=== PATIENT | male | born 1975 | race Hispanic/Latino ===

== ENCOUNTER 2025-02-17 17:44 | Emergency (ER) | payer BC ==
[~2025-02-17] VITALS: Ht 162.6 cm; Wt 99.8 kg
[~2025-02-17 17:44] MED LIST: CYCL-309 PO; IBUP-2077 PO; OMEP40CA21 PO; PRED20TA3 PO
[2025-02-17] MEDS ORDERED: 0.9%NACL 1000ML 1,000 ML IV STA (17:53)
[2025-02-17 18:16] LABS: IMMATURE GRANULOCYTE ABSOLUTE 0.02 K/uL (0-1); NUCLEATED RED BLOOD CELLS 0.0 % (0.0-0.19); PLATELET COUNT (AUTO) 250 K/uL (130-400); RED BLOOD CELL COUNT(AUTO) 5.51 MIL/uL (4.50-6.20); RED CELL DISTRIBUTION WIDTH 12.6 % (11.0-15.5); WHITE BLOOD COUNT (AUTO) 7.0 K/uL (4.8-10.8)
[2025-02-17] MEDS: [UNRECOGNIZED DRUG - OTHER] IV ONE (18:26)
[2025-02-17 18:27] LABS: CREATININE 0.9 mg/dL (0.5-1.3); GLOMERULAR FILTR. RATE CALC 105.0 mL/min (>90); GLUCOSE,RANDOM 309.0 mg/dL (70-105); SODIUM SERUM 136.0 mmol/L (136-145); UREA NITROGEN, BLOOD 12.0 mg/dL (7-18)
--- NOTE | 2025-02-17 18:35 | HMCIMG ---
EXAM: CR Chest, 1 View. CLINICAL HISTORY: cough COMPARISON: None provided. FINDINGS: LUNGS: The lungs show no infiltrate or other acute finding. PLEURAL SPACES: No pleural effusion or pneumothorax. MEDIASTINUM: Cardiac size and mediastinal contours within normal limits. BONES: No aggressive appearing osseous lesion seen. IMPRESSION: No acute cardiopulmonary pathology is evident. /[place]
[2025-02-17 18:36] LABS: CREATINE KINASE, TOTAL 97.0 U/L (21-232)
[2025-02-17 18:48] LABS: SARS-CoV-2, RNA, NAAT NEGATIVE SARS CoV-2 (NEGATIVE)
[2025-02-17 18:54] LABS: INFLUENZA TYPE A Negative For Type A (NEGATIVE); INFLUENZA TYPE B Negative For Type B (NEGATIVE)
[2025-02-17 20:05] LABS: ASPARTATE AMINOTRANSFERASE 42.0 U/L (10-37); TOTAL PROTEIN, SERUM 8.9 g/dL (6.0-8.3)
[2025-02-17 21:27] LABS: APPEARANCE,URINE CLEAR (CLEAR); GLUCOSE, URINE (UA) 500 mg/dL (NEGATIVE); LEUKOCYTE ESTERASE ,URINE NEGATIVE Leu/uL (NEGATIVE); NITRATE,URINE NEGATIVE (NEGATIVE); OCCULT BLOOD,URINE NEGATIVE (NEGATIVE)
[2025-02-17 21:28] LABS: ADD UA MICROSCOPIC YES
[2025-02-17 21:38] LABS: AMPHET/METH SCREEN,URINE NEGATIVE (NEGATIVE); BARBITURATE SCREEN, URINE NEGATIVE (NEGATIVE); CANNABINOID SCREEN,URINE POSITIVE (NEGATIVE); COCAINE SCREEN,URINE NEGATIVE (NEGATIVE)
--- NOTE | 2025-02-17 21:49 | ERN ---
ED Note History of Present Illness Stated Complaint: CHEST PAIN, N/V Chief Complaint: Chest Pain Time Seen by MD: 17:52 Time Seen by Midlevel: 17:56 Dictation: 49-year-old male coming in for generalized body weakness and generalized body aches and pains onset Monday. Patient states he had two episodes of vomit today. Patient admits to working out in the sun daily. Denies having any medical or surgical problems. Allergies: Coded Allergies: No Known Allergies (Unverified Allergy, Unknown, 11/18/24) Home Meds Active Scripts Omeprazole (Omeprazole) 40 Mg Capsule.dr, 1 CAP PO DAILY for 30 Days, #30 CAP 0 Refills Prov:AGUS MORAN NP 11/18/24 Prednisone (Prednisone) 20 Mg Tablet, 1 TAB PO AD for 6 Days, #14 TAB 0 Refills TAKE 1 TAB BY MOUTH THREE TIMES PER DAY X3 DAYS, THEN TAKE 1 TAB BY MOUTH TWICE A DAY X2 DAYS, THEN TAKE 1 TAB BY MOUTH ONCE A DAY X1 DAY. Prov:AGUS MORAN NP 11/18/24 Ibuprofen (Ibuprofen 800 mg Tab) 800 Mg Tab, 800 MG PO Q8H PRN for fever or pain, #30 TAB 0 Refills Prov:AGUS MORAN NP 11/18/24 Cyclobenzaprine HCl (Cyclobenzaprine HCl) 10 Mg Tablet, 1 TAB PO TID for muscle spasms for 10 Days, #30 TAB 0 Refills Prov:AGUS MORAN NP 11/18/24 Past Medical History Past Medical History: No Pertinent History Surgical History: Appendectomy Surgical History Other: KNEE Review of System Dictation Constitutional: Generalized body aches and pains Eyes: Negative for injury, pain,redness, and discharge ENT: Negative for injury,pain or swelling Cardiovascular: Negative for chest pain, palpitations, and edema Respiratory: Negative for shortness of breath, cough, and wheezing, Abdomen/GI: Negative for abdominal pain, nausea, vomiting, diarrhea, and constipation Back: Negative for injury and pain : Negative for injury, bleeding and discharge MS/Extremity: Negative for injury and deformity Skin: Negative for rash, and discoloration Neuro: Negative for headache, weakness, numbness, tingling, and seizure Psych: Negative for suicide ideation, homicidal ideation, and hallucinations Review of Systems: was completed Initial Vital Sign VS Vital Signs Date Time Temp Pulse Resp B/P (MAP) Pulse Ox O2 Delivery O2 Flow Rate FiO2 02/17/25 17:46 101.8 96 16 123/84 97 Room Air 0 02/17/25 18:00 21 Physical Exam Dictation General: awake, alert, NAD Head/Face: Normocephalic, atraumatic Eyes: PERRL, EOMI, vision at baseline ENT: oral cavity clear, TMs clear, no signs of infection Neck: Trachea midline, supple, no nuchal rigidity Cardiovascular: RRR, normal S1/S2, No MRGs, no JVD Respiratory: CTAB, no respiratory distress, No rales or wheezes Abdomen: Soft, non-tender, non-distended, normal bowel sounds, no guarding or rebound. Skin: Warm, dry, normal turgor, no rash MS/Extremity: Pulses equal, no cyanosis, neurovascular intact, FROM Neuro: COAx4, GCS 15, strength 5/5, CN 2-12 intact, normal cerebellar exam, normal gait, Psych: Normal behavior, mood, and affect normal Results (Laboratory/Radiology) Laboratory/Radiology Laboratory Tests Test 02/17/25 17:50 02/17/25 18:24 02/17/25 21:15 02/17/25 21:34 White Blood Count 7.0 K/uL (4.8-10.8) Red Blood Count 5.51 MIL/uL (4.50-6.20) Hemoglobin 16.8 g/dL (14.0-18.0) Hematocrit 48.4 % (42-54) Mean Corpuscular Volume 87.8 fL (79-99) Mean Corpuscular Hemoglobin 30.5 pg (27.0-33.0) Mean Corpuscular Hemoglobin Concent 34.7 g/dL (32.0-36.0) Red Cell Distribution Width 12.6 % (11.0-15.5) Platelet Count 250 K/uL (130-400) Mean Platelet Volume 10.6 fL (7.5-10.5) H Immature Granulocyte % (Auto) 0.3 % (0-1) Neutrophils (%) (Auto) 58.1 % (40.0-77.0) Lymphocytes (%) (Auto) 28.6 % (21.0-51.0) Monocytes (%) (Auto) 10.9 % (3.0-13.0) Eosinophils (%) (Auto) 1.0 % (0.0-8.0) Basophils (%) (Auto) 1.1 % (0.0-5.0) Neutrophils # (Auto) 4.1 K/uL (1.8-7.7) Lymphocytes # (Auto) 2.0 K/uL (1.0-4.8) Monocytes # (Auto) 0.8 K/uL (0.1-1.0) Eosinophils # (Auto) 0.07 K/uL (0.00-0.70) Basophils # (Auto) 0.08 K/uL (0.00-0.20) Absolute Immature Granulocyte (auto 0.02 K/uL (0-1) Nucleated Red Blood Cells 0.0 % (0.0-0.19) Sodium Level 136 mmol/L (136-145) Potassium Level 3.4 mmol/L (3.5-5.1) L Chloride Level 99 mmol/L (101-111) L Carbon Dioxide Level 23 mmol/L (21-32) Blood Urea Nitrogen 12 mg/dL (7-18) Creatinine 0.9 mg/dL (0.5-1.3) Glomerular Filtration Rate Calc 105 mL/min (>90) Random Glucose 309 mg/dL (70-105) H Lactic Acid Level 3.7 mmol/L (0.8-2.5) H 1.2 mmol/L (0.8-2.5) Total Calcium 9.1 mg/dL (8.5-10.1) Total Bilirubin 0.7 mg/dL (0.2-1.0) Direct Bilirubin 0.1 mg/dL (0.0-0.3) Aspartate Amino Transf (AST/SGOT) 42 U/L (10-37) H Alanine Aminotransferase (ALT/SGPT) 56 U/L (12-78) Alkaline Phosphatase 125 U/L (50-136) Total Creatine Kinase 97 U/L (21-232) Troponin I High Sensitivity < 4 ng/L (4-75) L Total Protein 8.9 g/dL (6.0-8.3) H Albumin 3.8 g/dL (3.5-5.0) Lipase 98 U/L (16-77) H Influenza Type A Antigen Negative For Type A Influenza Type B Antigen Negative For Type B SARS-CoV-2, RNA, NAAT NEGATIVE SARS CoV-2 Urine Color LIGHT-YELLOW (YELLOW) Urine Appearance CLEAR (CLEAR) Urine pH 6.5 (5.0-8.0) Urine Specific [place] 1.006 (1.001-1.031) Urine Protein NEGATIVE mg/dL (NEGATIVE) Urine Glucose (UA) 500 mg/dL (NEGATIVE) H Urine Ketones NEGATIVE mg/dL (NEGATIVE) Urine Occult Blood NEGATIVE (NEGATIVE) Urine Nitrate NEGATIVE (NEGATIVE) Urine Bilirubin NEGATIVE mg/dL (NEGATIVE) Urine Urobilinogen 0.2 mg/dL (0.2-1.0) Urine Leukocyte Esterase NEGATIVE [place]/uL Urine RBC 2-5 /HPF (0-1) H Urine WBC 0-1 /HPF (0-1) Urine Bacteria RARE /HPF (None Seen) Urine Opiates Screen NEGATIVE (NEGATIVE) Urine Barbiturates Screen NEGATIVE (NEGATIVE) Urine Phencyclidine Screen NEGATIVE (NEGATIVE) Urine Amphetamines Screen NEGATIVE (NEGATIVE) Urine Benzodiazepines Screen NEGATIVE (NEGATIVE) Urine Cocaine Screen NEGATIVE (NEGATIVE) Urine Marijuana (THC) Screen POSITIVE (NEGATIVE) H Labs Reviewed?: Yes X-RAY Comment: [place] [id number] [address] IMAGING REPORT Signed PATIENT: KAZ PERALTA MR#: [id number] : 1975 SEX: M AGE: 49 LOCATION: ED ORDER 55 STATUS: [facility] REPORT#: [id number] SERVICE 52 REASON: cough ORDERING PHYSICIAN: KURTIS VALDOVINOS NP PROCEDURE: CXR1VW - CHEST 1VW EXAM: CR Chest, 1 View. CLINICAL HISTORY: cough COMPARISON: None provided. FINDINGS: LUNGS: The lungs show no infiltrate or other acute finding. PLEURAL SPACES: No pleural effusion or pneumothorax. MEDIASTINUM: Cardiac size and mediastinal contours within normal limits. BONES: No aggressive appearing osseous lesion seen. IMPRESSION: No acute cardiopulmonary pathology is evident. /[place] DICTATED BY: EDWARD PIZARRO Jr., MD DATE: 02/17/251933 ELECTRONICALLY SIGNED BY: EDWARD PIZARRO Jr., MD DATE: 02/17/251933 ED Course ED Course Orders Procedure Category Date Status Time Cbc With Differential LAB 02/17/25 Complete 17:53 Blood Cult YENNI 02/17/25 In Process 17:53 Urinalysis Profile LAB 02/17/25 Complete 17:53 Culture Urine YENNI 02/17/25 In Process 17:53 0.9%Nacl 1000ml (Ns PHA 02/17/25 Complete 1000ml) 18:00 Creatine Kinase, Total LAB 02/17/25 Complete 17:53 Troponin I High LAB 02/17/25 Complete Sensitivity 17:53 Lactic Acid LAB 02/17/25 Complete 17:53 Basic Metabolic Panel LAB 02/17/25 Complete 17:53 Covid Rna Naat LAB 02/17/25 Complete 17:53 Influenza Type A & B, LAB 02/17/25 Complete Rapid 17:53 Chest 1vw RAD 02/17/25 Resulted 17:53 0.9%Nacl 1000ml (Ns PHA 02/17/25 Complete 1000ml) 17:53 Acetaminophen 325 Tab PHA 02/17/25 Complete (Tylenol 325mg Tab 17:53 Drug Screen Urine LAB 02/17/25 Complete 17:53 Lipase LAB 02/17/25 Complete 19:55 Hepatic Function Panel LAB 02/17/25 Complete 19:55 Lactic Acid (Removed) LAB 02/17/25 Complete 21:21 Ketorolac PHA 02/17/25 Verified Tromethamine 15mg/Ml 21:44 Current Medications Medications (Trade) Dose Ordered Sig/[place] Route PRN Reason Start Time Stop Time Status Last Admin Dose Admin Acetaminophen (TYLenol 325MG TAB) 650 mg ONCE STAT PO 02/17/25 17:53 02/17/25 17:57 DC 02/17/25 18:26 Sodium Chloride 1,000 ml @ 1,000 mls/hr Q1H STAT IV 02/17/25 17:53 02/17/25 18:01 DC Sodium Chloride 2,994 ml @ 998 mls/hr ONCE ONCE IV 02/17/25 18:00 02/17/25 20:59 DC 02/17/25 18:26 Vital Signs Date Time Temp Pulse Resp B/P (MAP) Pulse Ox O2 Delivery O2 Flow Rate FiO2 02/17/25 20:30 99.1 74 20 125/68 97 Room Air* 0 21 02/17/25 19:00 101.1 76 20 126/80 99 Room Air* 0 02/17/25 18:00 90 20 133/78 99 Room Air* 0 02/17/25 17:46 101.8 96 16 123/84 97 Room Air 0 Medical Decision Making MDM MDM: 49-year-old male coming in for generalized body weakness and generalized body aches and pains onset Monday. Patient states he had two episodes of vomit today. Patient admits to working out in the sun daily. Denies having any medical or surgical problems. CBC shows no leukocytosis, no anemia, no thrombocytopenia. Chemistry unremarkable other than elevated lactic level of 3.7. 30 mL/kg bolus initiated. Repeat lactic level was 1.2. Patient states he feels much better after fluids and Tylenol. Recommended patient be admitted for observation, patient states he rather be at home and rest, states he feels better and we will just return if symptoms worsen. Educated on signs symptoms to return back to the ER. Verbalized understanding, answered all questions. Differential diagnosis: Rhabdomyolysis, dehydration, influenza, COVID, viral syndrome. Rationale: Tests considered and ordered secondary to shared decision making include: Previous outside records reviewed: Old ER visits. Risk of complication and/or morbidity or mortality of patient management: None Medications-Per medication reconciliation Need for hospitalization: Patient does not meet criteria for hospitalization. Need for emergency major/minor surgery: No There are no social concerns with this patient. Prescription drug management Prescriptions will include symptomatic care Patient's prior external medical records from other ER visits were reviewed by me as indicated. Prior testing and results from previous visits were reviewed. Prior tests were taken into account with medical decision making and resource utilization, independent historian/historians were used to obtain complete medical history. I independently interpreted the test that were performed, results were reviewed by me and considered findings on radiology if ordered. Medical management and examination interpretation discussions were had by me with other qualified healthcare professionals as indicated for the patient's care. DX & DISP Disposition: Discharge Departure Impression: Primary Impression: Dehydration Condition: Stable Additional Instructions: Follow up with PCP in 1-2 days. Return to the hospital if symptoms worsen. Referrals: SELF,REFERRAL (PCP) Time of Disposition: 21:48 I have reviewed the case, and I agree with, Diagnosis and Plan KURTIS VALDOVINOS NP Feb 17, 2025 21:49
[2025-02-17 22:15] VITALS: BP 127/79; PULSE 71; RESP 18; TEMP 98.9; O2SAT 98
--- NOTE | 2025-02-18 13:29 | EKG ---
[facility] Test Date: 2025-02-17 Test Time: 17:36:59 Pat Name: KAZ PERALTA Department: ED Room: Gender: Academic Physician: [facility] : 1975 Requested By: REBECCA VALDOVINOS Order Number: [id number] Reading MD: Venessa Corrales Measurements Intervals [place] Rate: 107 P: 15 MT: 139 QRS: 24 QRSD: 88 T: 57 QT: 331 QTc: 441 Interpretive Statements Sinus tachycardia No previous ECG available for comparison Electronically Signed On 02-19-2025 14:12:52 CDT by Venessa Corrales Please click the below link to view image of tracing.
== END 2025-02-17 22:28 | disposition home or self-care (01) ==
LOC: EDH 17:44
DX: E86.0 Dehydration (principal); Z79.899 Other long term (current) drug therapy; Z90.49 Acquired absence of other specified parts of digestive tract; Z20.822 Contact with and (suspected) exposure to COVID-19
CPT/HCPCS: 99284; 96374; 71045; 87635; 82550; 80076; 84484; 80048; 80305; 83690; 85025; 87040 ×2; 87086; 87804 ×2; 83605 ×2; 36415; 93005; 81001; J1885; J7030